=== PATIENT | female | born 1965 | race Caucasian/White ===

== ENCOUNTER 2017-01-16 15:48 | Observation (INO) | payer OTHER ==
[~2017-01-16] VITALS: Ht 172.7 cm; Wt 150.0 kg
[~2017-01-16 15:48] MED LIST: DIAZ2 PO; MECL25CH PO
[2017-01-16 15:51] VITALS: BP 135/86; PULSE 82; RESP 18; TEMP 98.5; O2SAT 95
[2017-01-16] MEDS ORDERED: SODIUM CHLORIDE 0.9% FLUSH 10 ML FLUSH IVF PRN (16:45)
[2017-01-16] MEDS ORDERED: ASPIRIN 81 MG CHEW TAB PO ONE (16:45)
--- NOTE | 2017-01-16 16:45 | PD ---
HPI Chief Complaint: Pain: Acute or Chronic Time Seen by Provider: 16:41 Travel History International Travel<30 days: No Contact w/Intl Traveler<30days: No Traveled to known affect area: No History of Present Illness HPI Patient comes emergency Department complaining of intermittent chest pain since Thursday. [facility] and was sent to emergency department. Patient denies anything making it better or worse. Patient reports associated numbness and tingling bilateral upper extremities as well as a choking sensation when the symptoms occur. Patient describes a pressure/pounding in her chest substernally without radiation. Patient denies ever having a stress test, cardiac catheter, or history of heart problems. Patient denies any edema, dyspnea on exertion, cough, fevers, or recent travel. FORMERLY [facility], [facility] Past Medical History Narrative Medical Vertigo Diminished Hearing: No Fibromyalgia: Yes Menopausal: Yes Past Surgical History Endocrine Surgery: Yes (PARATHYROIDECTOMY) Other Surgery: Yes (BILATERAL BREAST REDUCTION) Social History Alcohol Use: No (PT DENIES) Tobacco Use: Yes (1 PPD) Substance Use: No (PT DENIES ) Allergies-Medications (Allergen,Severity, Reaction): Coded Allergies: Brush Pepper (Verified Allergy, Severe, 01/07/16) Codeine (Verified Allergy, Severe, Rash, 01/07/16) Reported Meds & Prescriptions Reported Meds & Active Scripts Active Reported [tylenol pm] PO HS PRN Naproxen 250 Mg Tab 250 Mg PO HS Duloxetine DR (Duloxetine HCl) 20 Mg Capdr 40 Mg PO DAILY Buspirone (Buspirone HCl) 10 Mg Tab 10 Mg PO BID Review of Systems Except as stated in HPI: all other systems reviewed are Neg Physical Exam Narrative GENERAL: Well-developed, overly nourished, in no acute distress, and non-ill appearing. SKIN: Focused skin assessment warm and dry. HEAD: Atraumatic. Normocephalic. EYES: Pupils equal and round. EOMI. No scleral icterus. No injection or drainage. ENT: No nasal bleeding or discharge. Mucous membranes pink and moist. NECK: Trachea midline. Supple. No nuclear rigidity. CARDIOVASCULAR: Regular rate and rhythm. No murmur appreciated. RESPIRATORY: No accessory muscle use. No respiratory distress. Clear to auscultation. Breath sounds equal bilaterally. Radial pulses 2+, intact, and equal bilaterally. MUSCULOSKELETAL: No obvious deformities. No clubbing. No cyanosis. No edema. Full range of motion. NEUROLOGICAL: Awake and alert. No obvious cranial nerve deficits. Motor grossly within normal limits. Normal speech. PSYCHIATRIC: Appropriate mood and affect; insight and judgment normal. Data Data Last Documented VS Vital Signs Date Time Temp Pulse Resp B/P Pulse Ox O2 Delivery O2 Flow Rate FiO2 01/16/17 17:20 156/81 01/16/17 16:54 73 15 01/16/17 16:54 97 Nasal Cannula 2 01/16/17 15:51 98.5 Orders Electrocardiogram (01/16/17 16:35) Basic Metabolic Panel (Bmp) (01/16/17 16:35) Ckmb (Isoenzyme) Profile (01/16/17 16:35) Complete Blood Count With Diff (01/16/17 16:35) Magnesium (Mg) (01/16/17 16:35) Prothrombin Time / Inr (Pt) (01/16/17 16:35) Act Partial Throm Time (Ptt) (01/16/17 16:35) Troponin I (01/16/17 16:35) Chest, Single Ap (01/16/17 16:35) Ecg Monitoring (01/16/17 16:35) Bilateral Bp Monitoring (01/16/17 16:35) Iv Access Insert/Monitor (01/16/17 16:35) Oximetry (01/16/17 16:35) Oxygen Administration (01/16/17 16:35) Aspirin Chew (Aspirin Chew) (01/16/17 16:45) Sodium Chloride 0.9% Flush (Ns Flush) (01/16/17 16:45) Admit Order (Ed Use Only) (01/16/17 18:38) Activity Bed Rest With Brp (01/16/17 18:38) Vital Signs (Adult) Q4H (01/16/17 18:38) Cardiac Rhythm .As Directed (01/16/17 18:38) Notify Dr: Other .PRN (01/16/17 18:38) Notify Parameters (01/16/17 18:38) Resp Oxygen Nasal Cannula (01/16/17 ) Diet Heart Healthy (01/16/17 Dinner) Ckmb (Isoenzyme) Profile (01/16/17 19:30) Ckmb (Isoenzyme) Profile (01/16/17 22:30) Troponin I (01/16/17 19:30) Troponin I (01/16/17 22:30) Electrocardiogram (01/16/17 19:30) Electrocardiogram (01/16/17 22:30) ^ Obtain (01/16/17 18:38) Sodium Chloride 0.9% Flush (Ns Flush) (01/16/17 18:45) Sodium Chloride 0.9% Flush (Ns Flush) (01/16/17 21:00) Poolroom/Poolhall Manager / Telemetry [id number] (01/16/17 18:38) Labs Laboratory Tests Test 01/16/17 16:30 White Blood Count 9.4 TH/MM3 Red Blood Count 4.73 MIL/MM3 Hemoglobin 14.1 GM/DL Hematocrit 42.9 % Mean Corpuscular Volume 90.7 FL Mean Corpuscular Hemoglobin 29.8 PG Mean Corpuscular Hemoglobin 32.9 % Concent Red Cell Distribution Width 13.8 % Platelet Count 250 TH/MM3 Mean Platelet Volume 8.6 FL Neutrophils (%) (Auto) 56.6 % Lymphocytes (%) (Auto) 29.4 % Monocytes (%) (Auto) 5.7 % Eosinophils (%) (Auto) 7.5 % Basophils (%) (Auto) 0.8 % Neutrophils # (Auto) 5.3 TH/MM3 Lymphocytes # (Auto) 2.8 TH/MM3 Monocytes # (Auto) 0.5 TH/MM3 Eosinophils # (Auto) 0.7 TH/MM3 Basophils # (Auto) 0.1 TH/MM3 CBC Comment DIFF FINAL Differential Comment Prothrombin Time 10.7 SEC Prothromb Time International 1.0 RATIO Ratio Activated Partial 27.4 SEC Thromboplast Time Sodium Level 141 MEQ/L Potassium Level 3.7 MEQ/L Chloride Level 107 MEQ/L Carbon Dioxide Level 27.4 MEQ/L Anion Gap 7 MEQ/L Blood Urea Nitrogen 11 MG/DL Creatinine 0.79 MG/DL Estimat Glomerular Filtration 76 ML/MIN Rate Random Glucose 118 MG/DL Calcium Level 8.8 MG/DL Magnesium Level 2.0 MG/DL Total Creatine Kinase 71 U/L Troponin I LESS THAN 0.02 NG/ML MDM Medical Decision Making Medical Screen Exam Complete: Yes Emergency Medical Condition: Yes Interpretation(s) EKG reviewed by Dr. Stringer shows sinus rhythm ventricular rate is 70. No STEMI. Chest x-ray read by the radiologist shows: Interstitial changes with an area of atelectasis or scarring in the left base. Changes appear chronic. Differential Diagnosis Arrhythmia, acute coronary syndrome, atypical chest pain, electrolyte abnormality, pneumonia, pneumothorax, other Narrative Course Patient was seen and examined. Patient was pig caster and IV was established. Patient given aspirin. Initial laboratory and radiology studies were ordered. Laboratory STUDIES were reviewed. Patient was reassessed found to be stable and in no acute distress. Discussed all findings and plan care of patient was, who is agreeable for admission. All questions were asked. Patient stated with her ED course and chest pain-free. Discussed patient with Dr. Stringer, who is in agreement with plan of care and disposition. Patient admitted to the chest pain center for further treatment and evaluation. Diagnosis Primary Impression: Atypical chest pain Admitting Information Admitting Physician Requests: Observation Condition: Stable Scout Price Jan 16, 2017 16:45
[2017-01-16 16:54] VITALS: BP 141/79; PULSE 72; PULSE 80; RESP 15; RESP 16; O2SAT 97
[2017-01-16 17:20] VITALS: BP 156/81
--- NOTE | 2017-01-16 17:30 | RADRPT ---
EXAM DATE/TIME: 01/16/2017 17:01 [facility] COMPARISON: No previous studies available for comparison. INDICATIONS : Chest pain and pressure. MEDICAL HISTORY : Papilloma cyst, left breast. SURGICAL HISTORY : Papilloma cyst removal, left breast. Breast reduction. ENCOUNTER: Initial ACUITY: 1 week PAIN SCORE: 5/10 LOCATION: Bilateral chest FINDINGS: The heart is normal in size. There are chronic appearing interstitial changes within the pulmonary pa renchyma. This area of atelectasis or scarring in the left lung base. The visualized bony structures are grossly intact. CONCLUSION: 1. Interstitial changes with an area of atelectasis or scarring in the left base. Changes appear buffer chrome donavan. Will Johnson MD on January 16, 2017 at 17:27 Board Certified Radiologist. This report was verified electronically.
[2017-01-16 17:32] LABS: AUTOMATED NEUTROPHIL # 5.3 TH/MM3 (1.8-7.7); BASOPHIL # 0.1 TH/MM3 (0-0.2); BASOPHIL % 0.8 % (0.0-2.0); EOSINOPHIL # 0.7 TH/MM3 (0-0.4); EOSINOPHIL % 7.5 % (0.0-4.0); HEMATOCRIT 42.9 % (35.0-46.0); HEMO FLAGS DIFF FINAL; LYMPH % 29.4 % (9.0-44.0); LYMPHOCYTE # 2.8 TH/MM3 (1.0-4.8); MEAN CELL VOLUME 90.7 FL (80.0-100.0); MEAN CORPUSCULAR HEMOGLOBIN 29.8 PG (27.0-34.0); MEAN CORPUSCULAR HGB CONC 32.9 % (32.0-36.0); MONO % 5.7 % (0.0-8.0); NEUT % 56.6 % (16.0-70.0); PLATELET COUNT 250 TH/MM3 (150-450); RED BLOOD COUNT 4.73 MIL/MM3 (4.00-5.30); RED CELL DISTRIBUTION WIDTH 13.8 % (11.6-17.2); WHITE BLOOD COUNT 9.4 TH/MM3 (4.0-11.0)
[2017-01-16 17:42] LABS: APTT (PATIENT) 27.4 SEC (24.3-30.1); PROTHROMBIN TIME - PATIENT 10.7 SEC (9.8-11.6)
[2017-01-16 18:00] LABS: ANION GAP 7 MEQ/L (5-15); BICARBONATE 27.4 MEQ/L (21.0-32.0); BLOOD UREA NITROGEN 11 MG/DL (7-18); CHLORIDE 107 MEQ/L (98-107); GLOMERULAR FILTRATION RATE 76 ML/MIN (>89); POTASSIUM 3.7 MEQ/L (3.5-5.1); SODIUM (NA) 141 MEQ/L (136-145)
[2017-01-16 18:33] LABS: CREATINE KINASE 71 U/L (26-192)
[2017-01-16] MEDS ORDERED: SODIUM CHLORIDE 0.9% FLUSH 10 ML FLUSH IV FLUSH PRN (18:45)
[2017-01-16 19:05] VITALS: BP 152/79; PULSE 71; RESP 20; O2SAT 97
[2017-01-16] MEDS ORDERED: BUSP10TA PO (19:11)
[2017-01-16] MEDS ORDERED: DULO1CAP PO (19:11)
[2017-01-16] MEDS ORDERED: tylenol pm PO (19:11)
[2017-01-16] MEDS ORDERED: NAPR250T PO (19:11)
[2017-01-16 20:27] LABS: CREATINE KINASE 73 U/L (26-192)
[2017-01-16 20:47] VITALS: BP 170/75; PULSE 71; RESP 18; TEMP 98.1; O2SAT 96
[2017-01-16] MEDS: SODIUM CHLORIDE 0.9% FLUSH 10 ML FLUSH IV FLUSH SCH (21:00)
[2017-01-16] MEDS ORDERED: DULoxetine HCl DR 20 MG CAP PO SCH (22:42)
[2017-01-16] MEDS ORDERED: NAPROXEN 250 MG TAB PO SCH (22:42)
[2017-01-16] MEDS ORDERED: NITROGLYCERIN 0.4 MG SL 25 TABS/BTL SL PRN (22:45)
[2017-01-16 23:30] VITALS: O2SAT 98
[2017-01-16] MEDS: busPIRone HCL 10 MG TAB PO SCH (23:31)
[2017-01-17] VITALS: BP 164/78; PULSE 88; RESP 18; TEMP 98.4; O2SAT 98
[2017-01-17 00:50] LABS: CREATINE KINASE 59 U/L (26-192)
[2017-01-17 04:22] VITALS: PULSE 68
[2017-01-17 05:08] VITALS: BP 131/80; PULSE 70; RESP 18; TEMP 98.1; O2SAT 97
[2017-01-17 07:21] VITALS: BP 143/81; PULSE 72; RESP 22; TEMP 97.8; O2SAT 98
[2017-01-17 08:00] VITALS: PULSE 65
[2017-01-17] MEDS: busPIRone HCL 10 MG TAB PO SCH (09:04)
[2017-01-17] MEDS: SODIUM CHLORIDE 0.9% FLUSH 10 ML FLUSH IV FLUSH SCH (09:05)
--- NOTE | 2017-01-17 09:10 | HHI.HP ---
HPI Primary Care Physician [facility] Chief Complaint Chest pain History of Present Illness 51-year-old female with history of vertigo, chronic neck pain, fibromyalgia, anxiety presents to the emergency room for further evaluation chest pain. Onset Thursday. Low location substernal chest described as pounding in her chest. Associated symptoms included choking and as though someone was sitting on her chest. Hurt to take a deep breath and that her bra was too tight. Duration lasted over an hour. Denied nausea, vomiting, or diaphoresis. Endorses similar chest discomfort in the past although not as severe. Since Thursday she has had a total of 8 episodes of similar chest pounding. States "it feels that my heart stopped then restarts with pounding." She had a routine primary care appointment yesterday at the [place] [facility]. There she described her chest discomfort to her primary care provider and was instructed to come to the ER for further evaluation. Review of Systems General: No fatigue,weakness, fever, chills, or recent illness. Has been in her general state of health although states her general state of health is not well as she sleeps "a lot." Also endorses severe anxiety regarding her chronic vertigo symptoms. HEENT: No JAMA, no vision changes, no nasal congestion or drainage, no dysphasia CV: As stated above. Denies any current chest discomfort. RESP: No SOB, cough, wheeze, recent URI, or history of asthma. GI: No nausea, vomiting, bowel changes, diarrhea, constipation, pain, distention , melena, blood in the stool. No change in appetite, no unintentional weight gain or weight loss : No dysuria, urgency, frequency EXT: No lower leg edema, no paraesthesias MS: No discomfort or change in ROM, ambulates with a cane for vertigo symptoms NEURO: Long-standing history of vertigo. No difficulty with balance, LOC, motor /sensory deficits PSYCH: History of anxiety and depression is stable on current medications although does state she has severe anxiety regarding vertigo "stating, afraid I will pass out." SKIN: Chronic intermittent rash due to "dry skin" on her back and right hip area. No concerning lesions Past Family Social History Allergies: Coded Allergies: Brush Pepper (Verified Allergy, Severe, 01/07/16) Codeine (Verified Allergy, Severe, Rash, 01/07/16) Past Medical History Vertigo, chronic neck pain, migraines, fibromyalgia, anxiety, depression Past Surgical History Parathyroidectomy, bilateral breast reduction Reported Medications Active Reported [tylenol pm] PO HS PRN Naproxen 250 Mg Tab 250 Mg PO HS Duloxetine DR (Duloxetine HCl) 20 Mg Cap 40 Mg PO DAILY Buspirone (Buspirone HCl) 10 Mg Tab 10 Mg PO BID Active Ordered Medications Current Medications Medications (Trade) Dose Ordered Sig/Jasmyne Route Start Time Stop Time Status Last Admin (Buspar) 10 mg BID PO 01/16/17 22:42 01/17/17 09:04 (Cymbalta Dr) 40 mg HS PO 01/16/17 22:42 01/16/17 23:31 (Naprosyn) 250 mg HS PO 01/16/17 22:42 01/16/17 23:31 (Nitrostat Sl) 0.4 mg Q5M PRN SL 01/16/17 22:45 Family History Noncontributory for early onset cardiovascular disease. Social History No known diabetes, hypertension, or hyperlipidemia. Recently had cholesterol panel drawn and was told cholesterol was higher than past level although does not require medication at this time. Current smoker smoking one half pack daily. Denies any alcohol or illegal drug use. Endorses sedentary lifestyle. Past cardiac testing None Physical Exam Vital Signs Vital Signs Date Time Temp Pulse Resp B/P Pulse Ox O2 Delivery O2 Flow Rate FiO2 01/17/17 07:21 97.8 72 22 143/81 98 01/17/17 05:08 98.1 70 18 131/80 97 01/17/17 04:22 68 01/17/17 00:00 98.4 88 18 164/78 98 01/16/17 23:30 98 01/16/17 20:47 98.1 71 18 170/75 96 01/16/17 19:05 71 20 152/79 97 Nasal Cannula 2 01/16/17 17:20 156/81 01/16/17 16:54 73 15 01/16/17 16:54 80 15 141/79 97 Nasal Cannula 2 01/16/17 16:54 97 Nasal Cannula 2 01/16/17 16:54 72 16 141/79 97 Nasal Cannula 2 01/16/17 15:51 98.5 82 18 135/86 95 Physical Exam GENERAL: Alert WN, WD, NAD, pleasant, obese, female HEAD: NC, AT EYES: Sclera clear, conjunctiva without injection NECK: Supple, no masses, trachea midline CV: RRR, without murmur, rub, gallop, no JVD, S1-S2 no S3-S4. RESP: Clear lungs throughout bilateral, no crackles, wheeze, rhonchi, symmetrical chest rise, nonlabored, able to speak in full sentences ABD: Soft, NT, ND, no masses, positive bowel tones BACK: No CVAT EXT: Pulses +24, +1 pitting bilateral lower edema MS: Normal tone 4 extremities, nontender, no obvious deformities, full range of motion NEURO: CN II through CN XII grossly intact, motor strength 5/5, gait WNL PSYCH: A+O 3, pleasant affect, appropriate speech, appropriate mood and affect , insight and judgment SKIN: Normal turgor, normal texture, small erythema lichenification middle of back Laboratory Laboratory Tests Test 01/16/17 01/16/17 01/16/17 16:30 19:19 23:45 White Blood Count 9.4 Red Blood Count 4.73 Hemoglobin 14.1 Hematocrit 42.9 Mean Corpuscular Volume 90.7 Mean Corpuscular Hemoglobin 29.8 Mean Corpuscular Hemoglobin 32.9 Concent Red Cell Distribution Width 13.8 Platelet Count 250 Mean Platelet Volume 8.6 Neutrophils (%) (Auto) 56.6 Lymphocytes (%) (Auto) 29.4 Monocytes (%) (Auto) 5.7 Eosinophils (%) (Auto) 7.5 Basophils (%) (Auto) 0.8 Neutrophils # (Auto) 5.3 Lymphocytes # (Auto) 2.8 Monocytes # (Auto) 0.5 Eosinophils # (Auto) 0.7 Basophils # (Auto) 0.1 CBC Comment DIFF FINAL Differential Comment Prothrombin Time 10.7 Prothromb Time International 1.0 Ratio Activated Partial 27.4 Thromboplast Time Sodium Level 141 Potassium Level 3.7 Chloride Level 107 Carbon Dioxide Level 27.4 Anion Gap 7 Blood Urea Nitrogen 11 Creatinine 0.79 Estimat Glomerular Filtration 76 Rate Random Glucose 118 Calcium Level 8.8 Magnesium Level 2.0 Total Creatine Kinase 71 73 59 Troponin I LESS THAN 0.02 LESS THAN 0.02 LESS THAN 0.02 Result Diagram: 01/16/17 1630 6/16/17 1630 Imaging Last Impressions Chest X-Ray 01/16/17 1635 Signed Impressions: Service Date/Time: Monday, January 16, 2017 17:01 - CONCLUSION: 1. Interstitial changes with an area of atelectasis or scarring in the left base. Changes appear chronic. Will Johnson MD Course EKGs Normal sinus rhythm, normal axis, T-wave inversions V2V3, no ST segment changes Assessment and Plan Assessment and Plan #1 Chest pain-admitted to chest pain center. Ruled out with 3 sets of cardiac enzymes, EKGs, and monitored overnight. Seen and evaluated by Dr. Enrique Corona. Will proceed with exercise stress testing. Chest discomfort most likely related to her fibromyalgia. Patient agreeable to plan of care. If stress testing unremarkable, will discharge later this evening. #2 Anxiety-continue duloxetine and buspirone. Chest pounding symptom likely due to her anxiety issues discussed in length. #3 Tobacco use-strongly encouraged to stop smoking in length #4 Hypertension-atenolol 25mg PO daily, educated her medication may also help with her vertigo symptoms. #5 Atopic dermatitis-instructed to apply over the counter Aquaphor or Eucerin to affected areas Karly Mahoney Jan 17, 2017 09:10
[2017-01-17] MEDS ORDERED: ONDANSETRON HCL 4 MG/2 ML VIAL IV PRN (10:00)
[2017-01-17] MEDS ORDERED: ACETAMINOPHEN 500 MG CPLT PO PRN (11:00)
--- NOTE | 2017-01-17 11:09 | EKG ---
Date Performed: 01/16/2017 Time Performed: 17:11:32 PTAGE: 51 years EKG: Sinus rhythm NONSPECIFIC T-WAVE ABNORMALITY BORDERLINE ECG PREVIOUS TRACING : 01/07/2016 11.13 DOCTOR: Enrique Corona Interpretating Date/Time 01/17/2017 11:09:06
--- NOTE | 2017-01-17 11:20 | EKG ---
Date Performed: 01/16/2017 Time Performed: 23:09:35 PTAGE: 51 years EKG: Sinus rhythm NONSPECIFIC T-WAVE ABNORMALITY BORDERLINE ECG PREVIOUS TRACING : 01/16/2017 19.03 DOCTOR: Enrique Corona Interpretating Date/Time 01/17/2017 11:20:08
--- NOTE | 2017-01-17 11:20 | EKG ---
Date Performed: 01/16/2017 Time Performed: 19:03:20 PTAGE: 51 years EKG: Sinus rhythm NONSPECIFIC T-WAVE ABNORMALITY BORDERLINE ECG PREVIOUS TRACING : 01/16/2017 17.11 DOCTOR: Enrique Corona Interpretating Date/Time 01/17/2017 11:18:50
--- NOTE | 2017-01-17 11:34 | TR ---
Date Performed: 01/17/2017 Time Performed: 10:30:49 DOCTOR: Enrique Corona DRUG LIST: CLINICAL HISTORY: REASON FOR TEST: ATYPICAL CHEST PAIN REASON FOR ENDING: OBSERVATION: CONCLUSION: Liam protocol completed. Stopped sec to reaching target heart rate and leg fatigue. Maximum MW=405 Target HR Achieved=87.0% Maximum YB=296/96 Total Exercise Time=3:27. No reprod chest discomfort. No ectopy. No st segment changes to sugg ischemia. Normal bp response. Poor exercise sapphire erance. Recovery quick and unremarkable. COMMENTS: CONCLUSION: Normal exercise treadmill. No evidence of ischemia.
[2017-01-17 11:47] VITALS: BP 137/82; PULSE 77; RESP 18; TEMP 98.2; O2SAT 95
[2017-01-17] MEDS ORDERED: ATEN25TA PO (15:11)
--- NOTE | 2017-01-17 15:12 | HHI.DCPOC ---
Discharge Care Plan Diagnosis: (1) Atypical chest pain (2) Hypertension (3) Tobacco abuse Goals to Promote Your Health * To prevent worsening of your condition and complications * To maintain your health at the optimal level Directions to Meet Your Goals Take your medications as prescribed Follow your dietary instruction Follow activity as directed Keep your appointments as scheduled Take your immunizations and boosters as scheduled If your symptoms worsen call your PCP, if no PCP go to Urgent Care Center or Emergency Room Smoking is Dangerous to Your Health. Avoid second hand smoke Call the 24-hour hour crisis hotline for domestic abuse at Karly Mahoney Jan 17, 2017 15:12
[2017-01-18] MEDS ORDERED: ASPIRIN 325 MG TAB PO SCH (09:00)
== END 2017-01-17 15:33 | disposition home or self-care (01) ==
LOC: NEPE 15:48 → NEDA 18:43 → NEPFCDU 20:40
PROVIDERS: ADMIT Internal Medicine Cardiovascular Disease; ATTEND Internal Medicine Cardiovascular Disease
DX: R07.89 Other chest pain (principal); F41.9 Anxiety disorder, unspecified; I10 Essential (primary) hypertension; L20.9 Atopic dermatitis, unspecified; R42 Dizziness and giddiness; R60.0 Localized edema; R20.0 Anesthesia of skin; R20.2 Paresthesia of skin; M54.2 Cervicalgia; G89.29 Other chronic pain; M79.7 Fibromyalgia; F32.9 Major depressive disorder, single episode, unspecified; E66.9 Obesity, unspecified; F17.200 Nicotine dependence, unspecified, uncomplicated; Z79.899 Other long term (current) drug therapy
CPT/HCPCS: 71010; 80048; 82550; 83735; 84484; 85025; 85610; 85730; 93005; 93017; 99285; G0378